=== PATIENT | male | born 1965 | race Caucasian/White ===

== ENCOUNTER → 2017-08-08 10:32 | Outpatient (CLI) | payer OTHER, SELFPAY ==
--- NOTE | 2017-08-08 10:46 | RAD_ITS ---
XR Spine Lumbar 2 or 3 Views INDICATION: pain, nki COMPARISON: None TECHNIQUE: Frontal and lateral views of the lumbar spine and coned-down lateral view of the lumbosacral junction FINDINGS: There are 5 lumbar type nonrib-bearing vertebral bodies. There is normal lumbar lordosis and no significant scoliosis. Disc spaces are decreased at the lower thoracic levels, L1-2, and L3-4. No evidence of vertebral body compression deformity. RAD/Lumbar Spine 2 or 3 Views IMPRESSION: Degenerative disc disease suggested at L1-2 and L3-4. No evidence of vertebral body compression deformity. at 1850 Reported and signed by: Mera Willett MD Electronically Signed: Mera Willett MD at 18:48 EDT Tel , Service support ,
--- NOTE | 2017-08-08 10:46 | RAD_ITS ---
STUDY: X-RAY - RIGHT SHOULDER REASON FOR EXAM: Male, 52 years old. Pain. TECHNIQUE: 4 view(s) of the shoulder. COMPARISON: None. FINDINGS: Normal glenohumeral articulation. There is hypertrophic osteoarthrosis of the acromioclavicular joint with inferior osseous spur formation. Normal acromion. Normal humeral head and visualized proximal humerus. The soft tissue structures are unremarkable. There is no demonstrated fracture. Normal visualized pulmonary apex. RAD/Shoulder min 2 Views IMPRESSION: No acute fracture or dislocation. Prominent degenerative changes of the AC joint. Electronically Signed: Blaise Johnson MD at 13:17 EDT , Service support ,
--- NOTE | 2017-08-08 10:46 | RAD_ITS ---
XR Knee 3 Views INDICATION: pain, nki COMPARISON: None TECHNIQUE: 4 views of the left knee FINDINGS: The osseous structures are intact and well aligned. There is lateral tracking of the patella with decreased joint space at the patellofemoral joint . Marginal osteophytes are noted and sharpening of the tibial spine. Lateral view demonstrates a well-corticated 1.3 cm calcific density in the suprapatella knee joint. RAD/Knee 4 or More Views IMPRESSION: Degenerative changes as detailed above. No evidence of acute fracture or dislocation. at 1800 Reported and signed by: Mera Willett MD Electronically Signed: Mera Willett MD at 17:58 EDT Tel , Service support ,
[2017-08-08 11:06] LABS: Amphetamine Urine VISTA NEGATIVE (<1000 ng/mL); Barbiturate Urine VISTA NEGATIVE (< 200 ng/mL); Benzodiazepine Urine VISTA NEGATIVE (< 200 ng/mL); Cocaine Urine VISTA NEGATIVE (< 300 ng/mL); Ecstacy Urine VISTA NEGATIVE (< 500 ng/mL); Methadone Urine VISTA NEGATIVE (< 300 ng/mL); PCP Urine VISTA NEGATIVE (< 25 ng/mL); THC Urine VISTA POSITIVE (< 50 ng/mL); Vista UDS pH Range 6
== END ==
PROVIDERS: Visit Provider Anesthesiology Pain Medicine
DX: F11.20 Opioid dependence, uncomplicated (principal); M25.569 Pain in unspecified knee; M25.519 Pain in unspecified shoulder; M54.9 Dorsalgia, unspecified
CPT/HCPCS: 72100; 73030; 73564; 80307

== ENCOUNTER → 2023-07-03 | Outpatient (CLI) | payer MEDICARE, MEDICAID, SELFPAY ==
--- NOTE | 2023-07-03 13:25 | RAD_ITS ---
STUDY: X-RAY - ABDOMEN/PELVIS REASON FOR EXAM: Male, 58 years old. HX OF KIDNEY STONES TECHNIQUE: KUB COMPARISON: None. FINDINGS: Normal visualized lung bases. There is an unremarkable bowel gas pattern. There is no demonstrated free abdominal air. The visualized liver, spleen and kidneys are grossly normal in size and morphology. There is a tiny calcific density in the right lower pelvis possibly representing phlebolith although distal ureteral calculus not excluded. Lumbar spine demonstrates minor scoliosis and degenerative change.] Right hip prosthesis is noted. RAD/Abdomen Single View IMPRESSION: Cannot exclude tiny distal right ureteral calculus. If concern for renal obstruction ultrasound or CT recommended for further evaluation. Electronically Signed: Fabio Herring MD at 22:16 EDT ,
--- NOTE | 2023-07-03 13:25 | US_ITS ---
INDICATION: HX OF KIDNEY STONES EXAMINATION: Ultrasound US Kidney(s) complete (eg, kidneys and bladder) TECHNIQUE: De La O scale and color doppler images were obtained of the kidneys. COMPARISON: Lumbar spine radiograph August 08, 2017. FINDINGS: RIGHT KIDNEY: 9.9 x 2.0 x 6.0 cm. There is no hydronephrosis. No shadowing calculus, focal lesion or perinephric collection is demonstrated. LEFT KIDNEY: 11.0 x 5.9 x 6.3 cm. There is no hydronephrosis. No shadowing calculus, focal lesion or perinephric collection is demonstrated. URINARY BLADDER: Nondistended, limiting evaluation. US/Kidney and Bladder IMPRESSION: Normal renal cortical appearance. Electronically Signed: Kj Vázquez MD at 3:12 EDT ,
== END | disposition home or self-care (01) ==
PROVIDERS: Referring Provider Urology; Visit Provider Urology
DX: Z87.442 Personal history of urinary calculi (principal)
CPT/HCPCS: 74018; 76770

== ENCOUNTER → 2023-07-03 | Outpatient (CLI) | payer MEDICARE, SELFPAY ==
[2023-07-03 14:59] LABS: Anion Gap 4 (5-15); BUN 18 mg/dL (7-18); BUN/Creat Ratio 18.5 RATIO (10-20); Calcium,Total 8.8 mg/dL (8.5-10.1); Chloride 107 mmol/L (98-107); Creatinine, Serum 0.98 mg/dL (0.70-1.30); EST Glomerular Filtration Rate 84 mL/min (>60); Est Glom Filt Rate - Afr Amer 101 mL/min (>60); Glucose 106 mg/dL (74-106); PSA,Total - Annual Screen 5.91 ng/mL (0.00-4.00); Potassium 4.5 mmol/L (3.5-5.1); Sodium Level 137 mmol/L (136-145)
== END | disposition home or self-care (01) ==
LOC: LABSPEC 09:17 → LAB 09:22
PROVIDERS: Referring Provider Urology; Visit Provider Urology
DX: Z12.5 Encounter for screening for malignant neoplasm of prostate (principal)
CPT/HCPCS: 36415; 80048; 84153; G0103

== ENCOUNTER → 2023-07-24 | Outpatient (CLI) | payer MEDICARE, MEDICAID, SELFPAY ==
--- NOTE | 2023-07-24 | IMM_PTH ---
PATIENT: DOV GUARDADO LOC: [facility] U#:[id number] AGE/SX: 58/M ROOM: RE07/24/[address]: Dr. Emerson Alvares MD : 1965 BED: DIS: 07/24/2023 SPEC #: [id number] RECD: 07/26/23 13:10 STATUS: VALERIA REQ #: [id number] KESHIA: 07/24/23 00:[address]: Emerson Alvares DEPT: IMMUNOHISTOCHEMISTRY RECD BY: Cody Bailey ENTERED: 07/26/23 13:11 SP TYPE: IMMUNO NYLA DR: No Primary Care Phys Tissues: C - PROSTATE RIGHT D - PROSTATE LEFT Procedures: 34BE12 (add) P40 (add) P40 (initial) PHYSICIAN & INSTITUTION [place] [id number] SPECIMEN INFORMATION: Tissue Source: C- Prostate, right base biopsy, D- Prostate, left apex biopsy Clinical Info: Elevated PSA Specimen Number: [id number] C&D CPT code: 92018,65276r1 METHODOLOGY: Deparaffinized sections of prefer/formalin-fixed tissue or PAP/DQ stained slides are incubated with monoclonal/polyclonal antibodies/oligonucleotide probes. Localization is made via biotin free immunoperoxidase method. Appropriate controls are performed and reacted as expected. Results on target cell population are indicated in the following table: RESULTS: ANTIBODY / CLONE RESULT Block C P40 (BC28) positive 34BE12 (34BE12) positive Block D P40 (BC28) positive 34BE12 (34BE12) positive These tests were developed and their performance characteristics determined by [facility]. They may not have been cleared or approved by the U.[place]. Food and Drug Administration. The FDA has determined that such clearance or approval is not necessary. The above immunohistochemical/dualISH markers are ordered and reviewed by the Pathologist. INTERPRETATION: C. Prostate, right base, biopsy: Benign prostatic tissue. D. Prostate, left apex, biopsy: Benign prostatic tissue. AM/mr 07/27/23
--- NOTE | 2023-07-24 08:00 | PROSBIL_PTH ---
PATIENT: DOV GUARDADO LOC: [facility] U#:[id number] AGE/SX: 58/M ROOM: RE07/24/[address]: Dr. Emerson Alvares MD : 1965 BED: DIS: 07/24/2023 SPEC #: [id number] RECD: 07/25/23 09:48 STATUS: VALERIA REBienvenido #: [id number] KESHIA: 07/24/23 08:[address]: Emerson Alvares DEPT: SURGICAL PATHOLOGY RECD BY: Tayla Srivastava ENTERED: 07/25/23 09:48 SP TYPE: PROST BX NYLA DR: Lana Primary Care Phys Tissues: A - PROSTATE RIGHT B - PROSTATE RIGHT C - PROSTATE RIGHT D - PROSTATE LEFT E - PROSTATE LEFT F - PROSTATE LEFT Procedures: PROSTATE BX HEADER OPERATION: Prostate biopsy PRE-OP DIAGNOSIS: Elevated PSA TISSUE SUBMITTED: A - Right apex, B - Right mid, C - Right base, D - Left apex, E - Left mid, F - Left base MICROSCOPIC DIAGNOSIS A. Right prostate, apex, core biopsy: Benign prostatic tissue. B. Right prostate, mid, core biopsy: Benign prostatic tissue. C. Right prostate, base, core biopsy: Benign prostatic tissue. See comment. D. Left prostate, apex, core biopsy: Benign prostatic tissue. See comment. E. Left prostate, mid, core biopsy: Benign prostatic tissue. F. Left prostate, base, core biopsy: Focal glandular atrophy. AM/mr 07/26/23 COMMENT C&D. Immunohistochemistry ([id number]) supports the above diagnosis. MICROSCOPIC DESCRIPTION Slides are reviewed. GROSS DESCRIPTION A - Received is one container designated prostate, right apex. The specimen consists of one elongated fragments of light pruitt-white soft tissue measuring 1.0 cm in length and 0.1 cm in diameter. The specimen is totally submitted in one cassette. B - Received is one container designated prostate, right mid. The specimen consists of one elongated fragments of light pruitt-white soft tissue measuring 1.0 cm in length and 0.1 cm in diameter. The specimen is totally submitted in one cassette. C - Received is one container designated prostate, right base. The specimen consists of one elongated fragments of light pruitt-white soft tissue measuring 1.5 cm in length and 0.1 cm in diameter. The specimen is totally submitted in one cassette. D - Received is one container designated prostate, left apex. The specimen consists of one elongated fragments of light pruitt-white soft tissue measuring 1.5 cm in length and 0.1 cm in diameter. The specimen is totally submitted in one cassette. E - Received is one container designated prostate, left mid. The specimen consists of one elongated fragments of light pruitt-white soft tissue measuring 1.5 cm in length and 0.1 cm in diameter. The specimen is totally submitted in one cassette. F - Received is one container designated prostate, left base. The specimen consists of one elongated fragments of light pruitt-white soft tissue each measuring 1.0 cm in length and 0.1 cm in diameter. The specimen is totally submitted in one cassette. / AM/ 07/25/23 TC:5 CPT: 61455 x6
== END | disposition home or self-care (01) ==
LOC: LABSPEC 15:52
PROVIDERS: Referring Provider Urology; Visit Provider Urology
DX: R97.20 Elevated prostate specific antigen [PSA] (principal)
CPT/HCPCS: 88305; 88341; 88342; G0416